=== PATIENT | male | born 1980 | race Caucasian/White ===

== ENCOUNTER 2018-03-31 10:51 | Emergency (ER) | payer BC | END 2018-03-31 13:05 | disposition left against medical advice (07) | LOC: MADERS 10:51 | DX: M54.5 Low back pain (principal) | CPT/HCPCS: 99283 ==

== ENCOUNTER 2025-02-13 05:05 | Emergency (ER) | payer BC ==
[2025-02-13 05:23] LABS: #Basophils 0.1 thou/uL (0.0-0.2); #Eosinophils 0.1 thou/uL (0.0-0.7); #Lymphocytes 2.6 thou/uL (1.20-3.40); #Monocytes 0.6 thou/uL (0.11-0.59); #Neutrophils 5.5 thou/uL (1.40-6.50); %Basophils 1.1 % (0.0-1.0); %Eosinophils 1.0 % (0.0-10.0); %Lymphocytes 29.0 % (21.0-51.0); %Monocytes 6.7 % (0.0-10.0); %Neutrophils 62.2 % (42.0-75.0); Hematocrit 52.5 % (42.0-52.0); Hemoglobin 16.6 g/dL (14.0-18.0); Mean Corpuscular Hemoglobin 27.8 pg (27.0-31.0); Mean Corpuscular Volume 87.8 fl (78.0-98.0); Platelet Count 168 10x3/uL (130-400); Red Blood Cell (RBC) Count 5.98 mill/uL (4.70-6.10); White Blood Cell (WBC) Count 8.9 10x3/uL (4.8-10.8)
[2025-02-13 05:42] LABS: Troponin I Less than 0.010 ng/mL (< 0.028)
[2025-02-13 05:43] LABS: ALT (SGPT) 63 U/L (Less than 45); AST (SGOT) 25 U/L (11-34); Albumin 4.1 g/dL (3.1-4.5); Alkaline Phosphatase 130 U/L (40-110); Anion Gap 16 mmol/L (10-20); BUN (Urea Nitrogen) 14 mg/dL (8.9-20.6); Bilirubin, Total 0.8 mg/dL (0.3-1.2); Calc. Creatinine Clearance 0 mL/min (70-130); Calcium 8.9 mg/dL (7.8-10.44); Carbon Dioxide 20 mmol/L (22-29); Chloride 106 mmol/L (98-107); Globulin 2.7 g/dL (2.4-3.5); Potassium 4.1 mmol/L (3.5-5.1); Sodium 138 mmol/L (136-145)
[2025-02-13 05:46] LABS: Glucose 450 mg/dL (70-105)
[2025-02-13] MEDS ORDERED: Ondansetron PF 4 MG/2 ML Vial ONE (06:09)
[2025-02-13] MEDS ORDERED: Lisinopril 10 MG TAB ONE (06:09)
[2025-02-13 07:25] LABS: Troponin I 0.010 ng/mL (< 0.028)
== END 2025-02-13 07:37 | disposition home or self-care (01) ==
LOC: MADERS 05:05
DX: R07.9 Chest pain, unspecified (principal); H72.91 Unspecified perforation of tympanic membrane, right ear; R42 Dizziness and giddiness; E11.9 Type 2 diabetes mellitus without complications; E78.5 Hyperlipidemia, unspecified; I10 Essential (primary) hypertension; Z79.899 Other long term (current) drug therapy; Z79.82 Long term (current) use of aspirin
CPT/HCPCS: 71045; 80053; 84484; 85025; 93005; 94760; 96374; J2405; J7030